=== PATIENT | female | born 1975 | race Caucasian/White ===

== ENCOUNTER → 2019-06-02 | Outpatient (CLI) | payer OTHER ==
[~2019-06-02] MED LIST: HYDR-3653 PO; PREG75CA PO
[2019-06-02 13:49] LABS: MICROSCOPIC NOT IND
[2019-06-02 13:51] LABS: BASOPHILS # (AUTO) 0.02 x10^3/uL (0-0.1); BASOPHILS % (AUTO) 0 % (0-1); EOSINOPHILS # (AUTO) 0.08 x10^3/uL (0-0.4); EOSINOPHILS % (AUTO) 1 % (1-7); LYMPHOCYTES # (AUTO) 3.15 x10^3/uL (1-3.4); LYMPHOCYTES % (AUTO) 31 % (22-44); MD NO; MEAN CORPUSCULAR HEMOGLOBIN 29.3 pg (27.0-34.8); MEAN CORPUSCULAR VOLUME 88.8 fL (80-100); MEAN PLATELET VOLUME 7.7 fL (7.4-10.4); MONOCYTES # (AUTO) 0.53 x10^3/uL (0.2-0.8); MONOCYTES % (AUTO) 5 % (2-9); NEUTROPHILS # (AUTO) 6.31 x10^3/uL (1.8-6.8); NEUTROPHILS % (AUTO) 63 % (42-75); PLATELET COUNT 432 x10^3/uL (130-400); RED BLOOD COUNT 4.46 x10^6/uL (3.82-5.3); RED CELL DISTRIBUTION WIDTH 13.8 % (9.6-15.2)
[2019-06-02 13:55] LABS: CULTURE INDICATED? NO
[2019-06-02 13:57] LABS: ANION GAP 6 mmol/L (5-15); CHLORIDE 104 mmol/L (98-107); CREATININE 0.68 mg/dL (0.55-1.02); INTERNATIONAL NORMALIZED RATIO 1.03 (0.93-1.1); PROTHROMBIN TIME 10.9 Seconds (9.6-11.5)
== END | disposition home or self-care (01) ==
LOC: STAR 12:46
PROVIDERS: ATTEND Neurological Surgery
DX: Z01.811 Encounter for preprocedural respiratory examination (principal); Z01.812 Encounter for preprocedural laboratory examination; M54.12 Radiculopathy, cervical region; M47.892 Other spondylosis, cervical region; R79.1 Abnormal coagulation profile; R94.31 Abnormal electrocardiogram [ECG] [EKG]
CPT/HCPCS: 36415; 71046; 72050; 80048; 81003; 85025; 85610; 85730; 93005

== ENCOUNTER 2019-06-12 07:30 | Inpatient (IN) | payer OTHER ==
[~2019-06-12] VITALS: Ht 170.2 cm; Wt 119.0 kg
[~2019-06-12 07:30] MED LIST changes: +BACITRACIN 50,000 UNIT ONE; +BUPIVACAINE/PF 0.25% ONE; +BUPIVACAINE/PF-EPI 0.25% 1:200K ONE; +VANCOMYCIN 1,000 MG ONE
[2019-06-12] MEDS ORDERED: PROPOFOL 50 ML ONE ×2 (08:45→13:32)
[2019-06-12] MEDS ORDERED: FENTANYL PF 250 MCG/5ML ONE (08:45)
[2019-06-12] MEDS ORDERED: MIDAZOLAM 1 MG/ML, 2ML ONE (08:45)
[2019-06-12] MEDS ORDERED: LACTATED RINGERS 1,000 ML IV SCH (09:31)
[2019-06-12] MEDS ORDERED: CHLORHEXIDINE 15 ML UDC ONE (09:41)
[2019-06-12] MEDS ORDERED: CHLORHEXIDINE 15 ML UDC MM ONE (10:00)
[2019-06-12] MEDS ORDERED: BUPIVACAINE/PF-EPI 0.5% 1:200K ONE (11:49)
[2019-06-12] MEDS ORDERED: METOPROLOL 1 MG/ML, 5ML IV PRN (13:30)
[2019-06-12] MEDS ORDERED: HYDROmorphone 2 MG/ML, 1ML IVPush PRN ×2 (13:30→16:00)
[2019-06-12] MEDS ORDERED: DIAZEPAM 5 MG/ML, 2ML IVPush PRN (13:30)
[2019-06-12] MEDS ORDERED: ACETAMINOPHEN 325 MG TABLET PO PRN (13:30)
[2019-06-12] MEDS ORDERED: hydrALAzine 20 MG/ML, 1ML IV PRN (13:30)
[2019-06-12] MEDS ORDERED: OXYcodone 5 MG/5 ML ORAL.SOL UDC PO PRN (13:30)
[2019-06-12] MEDS ORDERED: MIDAZOLAM 1 MG/ML, 2ML IV PRN (13:30)
[2019-06-12] MEDS ORDERED: MEPERIDINE/PF 25MG/ML,1ML IVPush PRN (13:30)
[2019-06-12] MEDS ORDERED: PROMETHAZINE 25 MG/ML, 1ML IV PRN (13:30)
[2019-06-12] MEDS ORDERED: DEXAMETHASONE 4 MG/ML, 1ML ONE (13:43)
[2019-06-12] MEDS ORDERED: PROPOFOL 10 MG/ML, 20ML ONE (13:43)
[2019-06-12] MEDS ORDERED: SUCCINYLCHOLINE 20 MG/ML, 10ML ONE (13:43)
[2019-06-12] MEDS ORDERED: ROCURONIUM 10MG/ML,5ML ONE (13:43)
[2019-06-12] MEDS ORDERED: CEFAZOLIN 1,000 MG ONE (13:43)
[2019-06-12] MEDS ORDERED: ONDANSETRON 2MG/ML, 2ML ONE (13:43)
[2019-06-12] MEDS ORDERED: FENTANYL PF 100 MCG/2ML ONE (14:21)
[2019-06-12] MEDS ORDERED: OXYcodone 5 MG/5 ML ORAL.SOL UDC ONE (14:21)
[2019-06-12] MEDS: FENTANYL PF 100 MCG/2ML IV PRN ×2 (14:23→14:55)
[2019-06-12] MEDS ORDERED: LABETALOL 5MG/ML, 20ML IV PRN (16:00)
[2019-06-12] MEDS ORDERED: BISACODYL 10 MG SUPP PR PRN (16:00)
[2019-06-12] MEDS ORDERED: ONDANSETRON 2MG/ML, 2ML IV PRN (16:00)
[2019-06-12] MEDS ORDERED: LABETALOL 5MG/ML, 20ML IV SCH (16:00)
[2019-06-12] MEDS ORDERED: HYDROcodone/APAP 5/325 TABLET PO PRN (16:00)
[2019-06-12] MEDS ORDERED: PROMETHAZINE 25 MG/ML, 1ML IM PRN (16:00)
[2019-06-12] MEDS ORDERED: MAGNESIUM HYDROXIDE 8%, 30ML UDC PO PRN (16:00)
[2019-06-12] MEDS ORDERED: DIPHENHYDRAMINE 50 MG/ML, 1ML IM PRN (16:00)
[2019-06-12] MEDS ORDERED: DIPHENHYDRAMINE 50 MG/ML, 1ML IVPush PRN (16:00)
[2019-06-12] MEDS ORDERED: DIPHENHYDRAMINE 25 MG CAPSULE PO PRN (16:00)
[2019-06-12] MEDS: NS + 20MEQ KCL 1,000 ML IV SCH ×2 (16:00→19:33)
[2019-06-12] MEDS: METHOCARBAMOL 750 MG TABLET PO SCH ×2 (16:59→23:53)
[2019-06-12] MEDS: OXYcodone/APAP 5/325MG TABLET PO PRN ×2 (16:59→21:05)
[2019-06-12] MEDS: PREGABALIN 75 MG CAPSULE PO SCH (17:00)
[2019-06-12 19:30] VITALS: BP 121/84
[2019-06-12] MEDS: CEFAZOLIN PMX 1GM/50ML 50 ML IVPB SCH (20:42)
[2019-06-12] MEDS ORDERED: PREGABALIN 75 MG CAPSULE PO SCH (21:00)
[2019-06-12] MEDS ORDERED: ZOLPIDEM 5MG TABLET PO PRN (21:00)
[2019-06-12 23:50] VITALS: BP 111/67
[2019-06-13] MEDS: OXYcodone/APAP 5/325MG TABLET PO PRN ×3 (02:08→13:53)
[2019-06-13 03:40] VITALS: BP 116/65
[2019-06-13] MEDS: CEFAZOLIN PMX 1GM/50ML 50 ML IVPB SCH (04:38)
[2019-06-13] MEDS ORDERED: ENOXAPARIN 40 MG/0.4 ML ONE (06:00)
[2019-06-13 07:20] VITALS: BP 103/70
[2019-06-13] MEDS ORDERED: METH750T87 PO (08:40)
[2019-06-13] MEDS ORDERED: OXYC5CAP2 PO (08:41)
[2019-06-13] MEDS: METHOCARBAMOL 750 MG TABLET PO SCH ×2 (08:56→16:18)
[2019-06-13] MEDS: PREGABALIN 75 MG CAPSULE PO SCH (08:56)
[2019-06-13] MEDS ORDERED: SENNA/DOCUSATE TABLET PO SCH (09:00)
[2019-06-13] MEDS: NS + 20MEQ KCL 1,000 ML IV SCH (11:56)
[2019-06-13 13:48] VITALS: BP 116/75
[2019-06-13] MEDS ORDERED: ENOXAPARIN 40 MG/0.4 ML SQ SCH (14:00)
[2019-06-14] MEDS ORDERED: ENOXAPARIN 40 MG/0.4 ML SQ SCH (06:00)
== END 2019-06-13 16:42 | disposition home or self-care (01) | DRG 472 ==
LOC: ORIP 08:36 → 4NE 15:40
PROVIDERS: ADMIT Neurological Surgery; ATTEND Neurological Surgery
PROC: 00NW0ZZ Release Cervical Spinal Cord, Open Approach (ICD-10-PCS; 2019-06-12)
PROC: 01N10ZZ Release Cervical Nerve, Open Approach (ICD-10-PCS; 2019-06-12)
PROC: 0RB30ZZ Excision of Cervical Vertebral Disc, Open Approach (ICD-10-PCS; 2019-06-12)
PROC: 4A11X4G Monitoring of Peripheral Nervous Electrical Activity, Intraoperative, External Approach (ICD-10-PCS; 2019-06-12)
PROC: 0RG10A0 Fusion of Cervical Vertebral Joint with Interbody Fusion Device, Anterior Approach, Anterior Column, Open Approach (ICD-10-PCS; principal; 2019-06-12 11:00)
DX: M50.122 Cervical disc disorder at C5-C6 level with radiculopathy (principal); M50.022 Cervical disc disorder at C5-C6 level with myelopathy; M47.12 Other spondylosis with myelopathy, cervical region; M47.22 Other spondylosis with radiculopathy, cervical region; M48.02 Spinal stenosis, cervical region; Z88.2 Allergy status to sulfonamides; Z91.013 Allergy to seafood; Z79.899 Other long term (current) drug therapy
CPT/HCPCS: 72040; C1713; G0378; J0690; J1100; J1650; J2250; J2405; J2704; J3010; J3370; J3490; C1762; C1889; J0330; J7120